=== PATIENT | female | born 1950 ===

== ENCOUNTER 2017-12-15 00:20 | Observation (INO) | payer MEDICARE, OTHER ==
[2017-12-14 14:45] LABS: INR 0.98
[2017-12-15] VITALS (15 sets, daily range): BP systolic 123–156; BP diastolic 75–122
[~2017-12-15] VITALS: Ht 154.9 cm; Wt 56.7 kg
[~2017-12-15 00:20] MED LIST: CETI-176 PO; CHOL10005 PO; FAMO20TA28 PO; LEVO75TA73 PO; LOSA100T67 PO; PRAV40TA78 PO; ZOLP-350 PO
--- NOTE | 2017-12-15 06:11 | LEVENE H&P ---
DATE OF ADMISSION: December 15, 2017 IDENTIFICATION/CHIEF COMPLAINT The patient is a 67-year-old female with a chief complaint of right knee pain. HISTORY OF PRESENT ILLNESS The patient has a longstanding history of knee arthritis, progressively painful and debilitating, refractory to conservative care. Surgery is indicated to relieve symptoms after failure of nonoperative measures. PAST MEDICAL HISTORY 1. Hypertension, controlled on medication. 2. Hypothyroidism. 3. Hypercholesterolemia. PAST SURGICAL HISTORY 1. Tonsillectomy. 2. Hysterectomy. 3. Bilateral knee scope x2 each. 4. Left knee replacement. 5. Multiple eye surgeries. ALLERGIES 1. AMOXICILLIN. 2. CODEINE. CURRENT MEDICATIONS 1. Levothyroxine 75 mcg p.o. daily. 2. Losartan 100 mg p.o. daily. 3. Pravastatin 40 mg p.o. daily. 4. Zyrtec 10 mg p.o. daily. 5. Pepcid 40 mg p.o. b.i.d. 6. Vitamin D 4000 units daily. 7. Zolpidem 10 mg p.o. daily. FAMILY HISTORY Notable for a mother with asthma, COPD, and NE and a father with an NE. SOCIAL HISTORY Negative for tobacco and alcohol use. REVIEW OF SYSTEMS Negative. PHYSICAL EXAMINATION GENERAL: This is a healthy female who appears stated age. HEENT: Normocephalic, atraumatic. NECK: Supple. LUNGS: Clear. HEART: Regular. ABDOMEN: Soft. ORTHOPEDIC: The right knee has crepitus and effusion. Extensor function intact. Gross stability is good. She is stiff at the end range. DIAGNOSTIC DATA Radiographs demonstrate DJD. ASSESSMENT Right knee degenerative joint disease, progressively painful and debilitating, refractory to conservative care. PLAN Per patient request, we are going to proceed [facility] knee replacement. the nature of the procedure, the risks, benefits, the anticipated rehabilitative course were reviewed. Risks of the procedure include, but are not limited to, , major medical or anesthetic complication, infection, neurovascular injury, blood transfusion, stiffness, scarring, fracture, tendon rupture, instability, implant loosening, migration or failure, persistent or recurrent pain, need for additional surgery and other unforeseen. She understands and wishes to proceed. A signed permit is placed in the chart. No guarantees are given or implied. [facility] MED[facility] CENTERYesenia
[2017-12-15] MEDS: NORMOSOL R SOLN(*) 1000 ML BAG 1,000 ML IV PRN ×2 (09:13→10:23)
[2017-12-15] MEDS ORDERED: fentaNYL CITR 100 MCG/2 ML AMP ONE ×2 (09:42→13:11)
[2017-12-15] MEDS ORDERED: ONDANSETRON 4 MG/2 ML VIAL ONE (09:43)
[2017-12-15] MEDS ORDERED: DEXAMETHASONE SOD PHOS 10MG/ML ONE (09:43)
[2017-12-15] MEDS ORDERED: PROPOFOL EMUL(*) 10MG/ML 20 ML 0 ML ONE (09:43)
[2017-12-15] MEDS ORDERED: LIDOCAINE MPF 1% 5 ML VIAL ONE (09:43)
[2017-12-15] MEDS ORDERED: MORPHINE PF 5 MG/10 ML AMP ONE (09:46)
[2017-12-15] MEDS ORDERED: MIDAZOLAM 2 MG/2 ML VIAL IVP PRN (10:45)
[2017-12-15] MEDS ORDERED: TRANEXAMIC AC 1000 MG/10ML SDV 1,000 MG in DEXTROSE 5% 50 ML BAG 50 ML IV ONE (10:45)
[2017-12-15] MEDS ORDERED: cloNIDine EPIDUR INJ 100MCG/ML 40 MCG, ROPIVACAINE 0.5% 20 ML VIAL 25 ML, EPINEPHrine H... INJ ONE (10:45)
[2017-12-15] MEDS ORDERED: CLINDAMYCIN(*) 900 MG/NS 50 ML 50 ML IVPB ONE (10:45)
[2017-12-15] MEDS ORDERED: LIDOCAINE/SOD BICARB 8.4% SYR ID ONE (10:45)
[2017-12-15] MEDS ORDERED: ETOMIDATE 20 MG/10 ML VIAL ONE (11:04)
[2017-12-15] MEDS ORDERED: ROCURONIUM BROM 10 MG/ML 5 ML ONE (11:30)
[2017-12-15] MEDS ORDERED: ePHEDrine 25 MG/5 ML DISP.SYR IVP ONE (11:30)
[2017-12-15] MEDS ORDERED: SUGAMMADEX SOD 500 MG/5 ML SDV ONE (11:30)
[2017-12-15] MEDS ORDERED: MIDAZOLAM 2 MG/2 ML VIAL ONE (13:01)
[2017-12-15] MEDS ORDERED: diphenhydrAMINE 50 MG/ML VIAL IVP PRN (13:30)
[2017-12-15] MEDS ORDERED: DIAZEPAM 5 MG TAB PO PRN (13:30)
[2017-12-15] MEDS ORDERED: diphenhydrAMINE 25 MG CAP PO PRN (13:30)
[2017-12-15] MEDS ORDERED: BENZOCAINE/MENTHOL 1 EACH LOZG PO PRN (13:30)
[2017-12-15] MEDS ORDERED: MAGNESIUM HYDROXIDE* 30ML UDCP PO PRN (13:30)
[2017-12-15] MEDS ORDERED: ZOLPIDEM TARTRATE 5 MG TAB PO PRN (13:30)
[2017-12-15] MEDS ORDERED: FLUSH 10 ML SYR IVP PRN (13:30)
[2017-12-15] MEDS ORDERED: NORMOSOL R SOLN(*) 1000 ML BAG 1,000 ML IV PRN (13:30)
[2017-12-15] MEDS ORDERED: PROMETHAZINE 25 MG/ML 1 ML AMP IVP PRN (13:30)
[2017-12-15] MEDS ORDERED: BISACODYL 10 MG SUPP PR PRN (13:30)
--- NOTE | 2017-12-15 13:54 | RADIOLOGY IMAGING REPORT ---
FACILITY: [facility] [place] PATIENT NAME: Francisca Rivas : 1950 MR: [id number] V: [id number] EXAM DATE: ORDERING PHYSICIAN: FEDE JAIN TECHNOLOGIST: Location: [facility] Patient: Francisca Rivas : 1950 Visit/Account:[id number] Date of Sevice: 12/15/2017 Exam type: KNEE LIMITED RIGHT History: S/P TOTAL KNEE ARTHROPLASTY CHECK PLACEMENT Comparison: December 13, 2009. Findings: There is a right knee arthroplasty that appears in good anatomic alignment on the AP and lateral view . Soft tissue gas and skin ryan project over the anterior aspect this postoperative knee IMPRESSION: 1. As above Report Dictated By: Diana Andrade MD at 12/15/2017 1:50 PM Report E-Signed By: Diana Andrade MD at 12/15/2017 1:50 PM WSN:[id number]
--- NOTE | 2017-12-15 15:56 | Hospitalist Progress Note ---
Subjective Progress Notes Subjective Patient admitted after right total knee replacement. Patient's medical history and medications have been reviewed. Patient had estimated blood loss of 100cc. Patient had no obvious complications from surgery. Patient Complains of: Cardiovascular: No: Chest Pain Respiratory: No: Shortness of Breath Physical Exam Vital Signs Date Time Temp Pulse Resp B/P (MAP) Pulse Ox O2 Delivery O2 Flow Rate FiO2 12/15/17 15:30 65 151/78 (102) 97 12/15/17 14:16 Nasal Cannula 2.0 12/15/17 13:58 97.6 16 Intake and Output 12/16/17 07:00 Intake Total 2240 ml Output Total 150 ml Balance 2090 ml Intake Oral 440 ml IV Total 1800 ml Output Urine Total 150 ml # Voids 2 General Appearance: Alert, Awake, No Acute Distress, Afebrile Cardiovascular: Regular Rate and Rhythm Respiratory: No Respiratory Distress, Clear to Auscultation Extremities: Warm, No Edema Psych: Alert & Oriented X3, Appropriate Mood & Affect Assessment and Plan Problems: (1) Status post knee replacement Status: Acute Assessment & Plan: Patient is s/p right knee replacement. Patient had no obvious complications. She will be placed on Aspirin 325mg daily for DVT prophylaxis. (2) Hypothyroidism Status: Chronic Assessment & Plan: Patient is on chronic treatment with levothyroxine. (3) Hypertension Status: Chronic Assessment & Plan: Patient is on chronic treatment with losartan. (4) Hyperlipidemia Status: Chronic Assessment & Plan: Patient is on chronic treatment with pravastatin. (5) Allergic rhinitis Status: Chronic Assessment & Plan: Patient is on chronic treatment with Zyrtec. (6) GERD (gastroesophageal reflux disease) Status: Chronic Assessment & Plan: Patient is on chronic treatment with Famotidine. Time Spent on Plan of Care: < 30 min Exam Sepsis Risk: No Definite Risk Problem Qualifiers (1) Status post knee replacement: Laterality: right Qualified Codes: Z96.651 - Presence of right artificial knee joint DIMITRIOS WOODY [facility] Dec 15, 2017 15:56
[2017-12-15] MEDS: IBUPROFEN 800 MG TAB PO SCH (16:24)
[2017-12-15] MEDS: FAMOTIDINE 20 MG TAB PO SCH (20:23)
[2017-12-15] MEDS: CLINDAMYCIN(*) 900 MG/NS 50 ML 50 ML IVPB SCH (20:24)
[2017-12-15] MEDS ORDERED: PRAVASTATIN SOD 20 MG TAB PO SCH (21:00)
--- NOTE | 2017-12-15 21:48 | OPERATIVE REPORT 1 ---
EVENT DATE: December 15, 2017 SURGEON: Cosme Pozo MD ANESTHESIOLOGIST: Alberto Lennon MD ANESTHESIA: General. TRADE SHOW COORDINATOR: YULI Crockett PREOPERATIVE DIAGNOSIS Right knee degenerative joint disease. POSTOPERATIVE DIAGNOSIS Right knee degenerative joint disease. PROCEDURE PERFORMED Right total knee arthroplasty. ESTIMATED BLOOD LOSS Minimal. DRAINS None. SPECIMENS None. COMPLICATIONS None apparent. TOURNIQUET TIME 46 minutes INDICATIONS Francisca is a 67-year-old woman who has intractable pain and disability related to end-stage knee arthritis. Surgery is indicated to relieve symptoms after failure of nonoperative measures. DESCRIPTION OF PROCEDURE The patient was taken to the operating room and placed supine on the operating table. General anesthesia was induced. Antibiotics and TXA were administered IV. The right lower extremity was prepped and draped in the usual sterile fashion for knee arthroplasty. A midline incision was made and carried down through the skin and subcutaneous tissue to the extensor mechanism. Full- thickness flaps were developed far enough medially to allow medial parapatellar arthrotomy be performed. The patella was everted, and the knee was put into the flexed positioned. The fat pad, anterior horns of the menisci, and the cruciate ligaments were debrided. Subperiosteal capsular release was performed 1 cm around the upper plateau to start to balance the soft tissues. A step drill was used to enter the distal femur. A 10-inch long alignment guide was used to engage the isthmus. The cut was set for 6 degrees of valgus relative to the anatomic axis. A 10 mm resection block was applied and pinned. The distal femoral cut was made with an oscillating saw. AP sizing guide was applied to the distal femur and positioned for 3 degrees of external rotation relative to the posterior condyles. The size 2 was optimal without risk of notching. The four-in-one cutting block was applied. Anterior, posterior, posterior chamfer, and anterior chamfer cuts were made respectively. The PS block was applied and centered. Medial and lateral bone was removed from the block. The trial femur had nice [id number] fit. Attention was turned to tibial preparation. The extramedullary guide was applied and positioned for varus, valgus, posterior slope, and rotation. This was set to resect 9 mm from the relatively intact lateral tibial plateau. It was dropped down a millimeter or so to ensure an adequate cut. The block was pinned. Extramedullary alignment check was made. The cut was made with an oscillating saw. Gaps were balanced and symmetric with no additional release required after osteophytes were removed. The size 2 tibial baseplate provided optimal bony coverage without soft tissue overhang. This was inserted along with the trial liner and trial femur. The knee was brought to extension. The patella was taken from a starting thickness of 22 to a residual of 14 with a patellar clamp and an oscillating saw. A 31 provided optimal bony coverage without soft tissue overhang. Lug holes were drilled. The patella tracked nicely with the no- touch technique. The final tibial preparation consisted of ensuring appropriate rotational and translational position of the component. The boss was reamed, and the fin was punched. The surfaces were copiously lavaged. Mixed polymethyl methacrylate was made and the components cemented in a single stage. When the cement was fully polymerized, the tourniquet was deflated, and meticulous hemostasis was assured. The wound was copiously lavaged. A 13 mm PS tibial tray liner filled up the gap ideally, allowing the knee to drop to full extension without hyperextension, providing optimal soft tissue tension and stability. The final 13 liner was locked into the baseplate. The joint was reduced. The arthrotomy was closed in the flexion with #2 Ethibond, the subcutaneous tissue with 3-0 Vicryl, and the skin with surgical ryan. Xeroform and 4 x 4's dry, surgical dressing and a compression wrap applied. The patient was awakened from anesthesia and taken to the recovery room in stable condition having tolerated the procedure well. PLAN The plan is for standard TKA rehab protocol. BRONWYN
[2017-12-16] MEDS: IBUPROFEN 800 MG TAB PO SCH ×2 (00:44→08:17)
[2017-12-16] MEDS: CLINDAMYCIN(*) 900 MG/NS 50 ML 50 ML IVPB SCH (04:11)
[2017-12-16] MEDS ORDERED: LEVOTHYROXINE SOD 0.075 MG TAB PO SCH (06:00)
[2017-12-16] MEDS ORDERED: HYDR-389 PO (07:40)
[2017-12-16] MEDS ORDERED: ASPI-757 PO (07:45)
[2017-12-16 07:46] VITALS: BP 119/66
[2017-12-16] MEDS: FAMOTIDINE 20 MG TAB PO SCH (08:17)
--- NOTE | 2017-12-16 08:29 | Hospitalist Progress Note ---
Subjective Progress Notes Subjective Patient has no changes from yesterday. Patient will be discharged today. Patient Complains of: Cardiovascular: No: Chest Pain Respiratory: No: Shortness of Breath Physical Exam Vital Signs Date Time Temp Pulse Resp B/P (MAP) Pulse Ox O2 Delivery O2 Flow Rate FiO2 12/16/17 07:54 96 Room Air 12/16/17 07:46 98.1 80 16 119/66 (83) 12/15/17 21:15 1.0 Intake and Output 12/17/17 07:00 # Voids 1 General Appearance: Alert, Awake, No Acute Distress, Afebrile Cardiovascular: Regular Rate and Rhythm Respiratory: No Respiratory Distress, Clear to Auscultation Extremities: No Edema Psych: Alert & Oriented X3, Appropriate Mood & Affect Assessment and Plan Problems: (1) Status post knee replacement Status: Acute Assessment & Plan: She will be placed on Aspirin 325mg daily for 30 days for DVT prophylaxis. (2) Hypothyroidism Status: Chronic Assessment & Plan: Patient is on chronic treatment with levothyroxine. (3) Hypertension Status: Chronic Assessment & Plan: Patient is on chronic treatment with losartan. (4) Hyperlipidemia Status: Chronic Assessment & Plan: Patient is on chronic treatment with pravastatin. (5) Allergic rhinitis Status: Chronic Assessment & Plan: Patient is on chronic treatment with Zyrtec. (6) GERD (gastroesophageal reflux disease) Status: Chronic Assessment & Plan: Patient is on chronic treatment with Famotidine. Exam Sepsis Risk: No Definite Risk Problem Qualifiers (1) Status post knee replacement: Laterality: right Qualified Codes: Z96.651 - Presence of right artificial knee joint DIMITRIOS WOODY PLANNING COORDINATOR Dec 16, 2017 08:29
[2017-12-16] MEDS ORDERED: CETIRIZINE HCL 10 MG TAB PO SCH (09:00)
[2017-12-16] MEDS ORDERED: ASPIRIN 325 MG TAB PO SCH (09:00)
[2017-12-16] MEDS ORDERED: LOSARTAN POTASSIUM 50 MG TAB PO SCH (09:00)
== END 2017-12-16 07:42 | disposition home or self-care (01) ==
LOC: OR 00:20 → INTOOBSV 13:55 → MED 13:55
PROVIDERS: ADMIT Orthopaedic Surgery; ATTEND Orthopaedic Surgery
DX: M17.11 Unilateral primary osteoarthritis, right knee (principal); I10 Essential (primary) hypertension; E03.9 Hypothyroidism, unspecified; E78.00 Pure hypercholesterolemia, unspecified; Z79.899 Other long term (current) drug therapy; K21.9 Gastro-esophageal reflux disease without esophagitis; J30.9 Allergic rhinitis, unspecified
CPT/HCPCS: 27447; 36415; 73560; 85610; 86850; 86900; 86901; 97116; 97161; 97530; A9270; C1713; C1776; G0378; J0171; J0735; J1100; J1885; J2001; J2250; J2405; J2795; J3010; J3490; J7050; J7060; J2270; J2704